=== PATIENT | female | born 2005 | race Caucasian/White ===

== ENCOUNTER 2024-10-25 14:44 | Outpatient (AMB) | payer BC, SELFPAY ==
--- NOTE | 2024-10-25 15:09 | A.OFFPC_ITS ---
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 Allergies No Known Allergies Allergy (Verified 10/25/24 15:13) Tobacco use date assessed: 10/25/24 Dental Screening Dental Screen Date: 10/25/24 Did you have a dental visit in the last 12 months?: No Did you have a dental problem in the last 6 months where you did not have access to dental care?: No Was dental information given to patient?: No HPI HPI Comments History of Present Illness Details 19-year-old female with no significant p ast medical history presents for a physical exam. She is establishing care. 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 She has no other concerns today. Patient reports last tetanus vaccine was in 2023. ROS: Constitutional: No unexplained weight loss, fever, chills, fatigue or night sweats. Eyes: No vision changes, blurry vision, double vision, eye pain, eye redness, eye discharge. ENT: No hearing loss, sneezing, congestion, runny nose or sore throat. Respiratory: No shortness of breath, cough or sputum production. Cardiovascular: No chest pain, chest pressure or chest discomfort. No palpitations or pedal edema. Gastrointestinal: No anorexia, nausea, vomiting or diarrhea. No abdominal pain or blood in stool. Genitourinary: No dysuria, hematuria, urinary frequency. Neurologic: No headache, dizziness, syncope, unilateral weakness, ataxia, numbness or tingling in the extremities. Musculoskeletal: No muscle pain, back pain, joint pain or swelling. Hematologic/Lymphatics: No bleeding or bruising. No painful lymph nodes. Skin: No rash or itching. Endocrine: No cold or heat intolerance. No polyuria or polydipsia. Psychiatric: No depression or anxiety. No SI/HI. Physical exam: Constitutional: Alert, in no distress. Head: Normocephalic. Eyes: Pupils are equal, round and reactive to light. Extraocular muscles intact. Ear, Nose and Throat: Canals clear. TMs normal. Normal nasal mucosa. No nasal discharge. No oral lesions. Neck: Supple, Full range of motion. No lymphadenopathy. No palpable thyroid m asses. Respiratory: Clear to auscultation. Cardiovascular: S1 S2 regular. No murmurs. Gastrointestinal: Abdomen soft, non-tender, non-distended. Normal bowel sounds. No palpable masses. Neurologic: No focal neurological deficits. Symmetric patellar reflexes. Moves all extremities spontaneously. Sensation intact bilaterally. Skin: No rashes or lesions. Musculoskeletal: No gross deformities. Normal range of motion. Extremities: Warm and well perfused. No clubbing, cyanosis or edema. 3+ peripheral pulses bilaterally. Psychiatric: Normal mood and affect [facility] Medical History (Updated 10/25/24 @ 15:38 by CHEY Black) HSV-1 (herpes simplex virus 1) infection Screening for tuberculosis Routine physical examination Screening for cardiovascular condition Family History (Updated 10/25/24 @ 15:18 by Carrie Elmore MA) Paternal Aunt Substance abuse Social History Housing: Apartment Patient Tobacco Use Status: Never used Tobacco e-Cigarette/Vaping Use: Currently Using Second Hand Smoke Exposure: No service: No Current occupational status: employed and student Current occupation: [employer] Current occupational exposures/hazards: No Cognitive needs: No Hearing needs: No Vision needs: No Questionnaire PHQ-9 Over the last 2 weeks, how often have you been bothered by any of the following problems? 1. Little interest or pleasure in doing things: not at all 2. Feeling down, depressed, or hopeless: not at all 3. Trouble falling or staying asleep, or sleeping too much: not at all 4. Feeling tired or having little energy: not at all 5. Poor appetite or overeating: not at all 6. Feeling bad about yourself - or that you are a failure or have let yourself or your family down: not at all 7. Trouble concentrating on things, such as reading the newspaper or watching television: not at all 8. Moving or speaking so slowly that other people could have noticed. Or the opposite - being so fidgety or restless that you have been moving around a lot more than usual: not at all 9. Thoughts that you would be better off or of hurting yourself in some way: not at all Total score: 0 Depression Screening Interpretation: Negative Depression Screening Done: Yes 30633 - PHQ-9 Billing: Yes Source: Developed by Drs. Arturo Kelly, Charu Silverio, Jordon Ray and colleagues, with an educational alban from [employer]. Thrive Questionnaire Date Thrive assessed: 10/25/24 I am a: Patient What is your living situation today?: I have a steady place to live Within the past 12 months, did the food you bought not last and you didn't have the money to get more?: Never true Within the past 12 months, did you worry whether your food would run out before you got money to buy more?: Never true Do you have trouble paying for medicines?: No Do you have trouble getting transportation to medical appointments?: No Do you have trouble paying your heating and electricity bill?: No Do you have trouble taking care of your child, family member or friend?: No Do you have trouble with day-to-day activities such as bathing, preparing meals, shopping, managing finances, etc.?: No Are you currently unemployed and looking for a job?: No Are you interested in more education?: No Please select the resources that you would like help with: None Currently or been in a relationship where the following occur: No concerns reported THRIVE Score: 0 AUDIT C Alcohol Use Questionnaire (AUDIT-C) 1. How often do you have a drink containing alcohol?: 2-4 times a month 2. How many drinks containing alcohol do you have on a typical day when you are drinking?: 3 or 4 3. How often do you have six or more drinks on one occasion?: Less than monthly Total Score: 4 KATHARINA-7 AMB Questionnaire KATHARINA-7 Date KATHARINA - 7 assessed: 10/25/24 Feeling nervous, anxious, or on edge: 0 = Not at all Not being able to stop or control worryin = Not at all Worrying too much about different things: 1 = Several days Trouble relaxin = Not at all Being so restless that it is hard to sit still: 0 = Not at all Becoming easily annoyed or irritable: 1 = Several days Feeling afraid as if something awful might happen: 0 = Not at all Total KATHARINA-7 score (0-4 normal; 5-9 mild; 10-14 moderate; 15-21 severe): 2 Source: Developed by Drs. Arturo Kelly, Charu Silverio, Jordon Ray and colleagues, with an educational alban from [employer]. KATHARINA-7 Assessment Billing KATHARINA-7 Assessment Tool: KATHARINA-7 Assessment 39776 Physical exam (Primary Care) Vital Signs: Last Vital Signs Temp 98.9 F 10/25/24 15:18 Pulse 94 10/25/24 15:18 BP 102/68 10/25/24 15:18 Pulse Ox 97 10/25/24 15:18 Oxygen Delivery Method Room Air 10/25/24 15:18 BMI result Body Mass Index 24.4 Tobacco/Smoking Status: Tobacco use Status Tobacco use date assessed 10/25/24 10/25/24 15:20 Patient Tobacco Use Status Never used Tobacco 10/25/24 15:20 e-Cigarette/Vaping Use Currently Using 10/25/24 15:20 PHQ-9: PHQ-9 Score PHQ-9: Total score 0 10/25/24 15:27 Depression Screening Interpretation: Negative Thrive Assessment: Date of Thrive Assessment Date Thrive assessed 10/25/24 10/25/24 15:11 Currently or been in a relationship where the following occur: No concerns reported Coding Level of Care Code Est Pt Prev Care 18-39y(79604) Diagnoses Screening for cardiovascular condition Z13.6 Routine physical examination Z00.00 Screening for tuberculosis Z11.1 Additional Codes KATHARINA-7 Assessment Billing - KATHARINA-7 Assessment Tool: KATHARINA-7 Assessment 94783 ([id number]) PHQ-9 - 17499 - PHQ-9 Billing: Yes ([id number]) Assessment & Plan Assessment & Plan (1) Screening for cardiovascular condition: Code(s): Z13.6 - Encounter for screening for cardiovascular disorders Category: Medical (2) Routine physical examination: Code(s): Z00.00 - Encounter for general adult medical examination without abnormal findings Category: Medical (3) Screening for tuberculosis: Code(s): Z11.1 - Encounter for screening for respiratory tuberculosis Category: Medical Plan Patient is seen today for a routine physical. 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 - Blood pressure screening annually - Cholesterol screening - Osteoporosis prevention including calcium/vitamin D intake, weight bearing exercise & smoking cessation - Nutritional and exercise counseling - Counseling of injury prevention including fire prevention, smoke alarms and seat belt usage - Screening for depression - Prevention of and/or testing for infectious diseases - defers testing since she had this done with Gynecology - Education about skin cancer - Recommendations about immunizations - Recommendation of an eye exam - Screening for substance abuse - Genetic cancer risk screening Schedule physical in 1 year. Orders: Orders Comprehensive Met. Panel Today Z00.00 - Encounter for general adult medical examination without abnormal findings, Z11.1 - Encounter for screening for respiratory tuberculosis, Z13.6 - Encounter for screening for cardiovascular disorders Complete Blood Count no Diff Today Z00.00 - Encounter for general adult medical examination without abnormal findings, Z11.1 - Encounter for screening for respiratory tuberculosis, Z13.6 - Encounter for screening for cardiovascular disorders Lipid Panel Today Z00.00 - Encounter for general adult medical examination without abnormal findings, Z11.1 - Encounter for screening for respiratory tuberculosis, Z13.6 - Encounter for screening for cardiovascular disorders Quantiferon TB Gold Plus 1 Today Z00.00 - Encounter for general adult medical examination without abnormal findings, Z11.1 - Encounter for screening for respiratory tuberculosis, Z13.6 - Encounter for screening for cardiovascular disorders
[2024-10-25 15:18] VITALS: BP 102/68; PULSE 94; TEMP 37.2; O2SAT 97; BMI 24.4
== END 2024-10-25 15:34 | disposition home or self-care (01) ==
LOC: HO.HMCFM 14:45
PROVIDERS: PCP Physician Assistant Medical; Visit Provider Physician Assistant Medical
DX: Z13.6 Encounter for screening for cardiovascular disorders (principal); Z00.00 Encounter for general adult medical examination without abnormal findings; Z11.1 Encounter for screening for respiratory tuberculosis

== ENCOUNTER → 2024-10-25 14:44 | Outpatient (BNVA) | payer BC, SELFPAY | PROVIDERS: PCP Physician Assistant Medical; Visit Provider Physician Assistant Medical | DX: Z00.00 Encounter for general adult medical examination without abnormal findings (principal); Z13.31 Encounter for screening for depression; Z13.30 Encounter for screening examination for mental health and behavioral disorders, unspecified | CPT/HCPCS: 96127 ==

== ENCOUNTER 2024-10-25 15:46 | Outpatient (REF) | payer BC, SELFPAY ==
[2024-10-25 17:46] LABS: Hemoglobin 13.8 g/dl (12.0-16.0); Mean Corpuscular HGB Conc 35.4 g/dl (31.0-35.0); Mean Corpuscular Hemoglobin 33.2 pg (27.0-33.0); Mean Corpuscular Volume 93.8 fL (80.0-98.0); Mean Platelet Volume 12.3 fL (9.4-12.3); Platelet Count 156 X10*3/uL (160-400); Red Blood Count 4.16 X10*6/uL (4.20-5.50)
[2024-10-25 18:06] LABS: Alanine Aminotransferase 28 U/L (0-31); Albumin Level 4.6 g/dL (3.5-5.0); Alkaline Phosphatase 40 U/L (39-117); Anion Gap 13 (12-20); Aspartate Amino Transferase 30 U/L (5-31); Bilirubin Total 0.4 mg/dL (0.0-1.0); Blood Urea Nitrogen 15 mg/dL (9-16); Calcium 9.3 mg/dL (8.4-10.2); Carbon Dioxide 26 mmol/L (22-29); Chloride 105 mmol/L (96-108); Cholesterol 166 mg/dL (<200); Estimated Glomerular Filt Rate > 60; Glucose Random 83 mg/dL (60-115); HDL Cholesterol 74 mg/dL (>40); LDL Cholesterol Calculated 81 mg/dL (<100); Potassium 3.6 mmol/L (3.3-5.1); Sodium 140 mmol/L (135-145); Triglycerides 57 mg/dL (<150)
[2024-10-29 16:49] LABS: Quantiferon TB Gold Plus 1 NEGATIVE (NEGATIVE); TB Test (QFT) Mitogen -Nil >10.00 IU/mL; TB Test (QFT) Nil 0.04 IU/mL; TB Test (QFT) Plus TB1 -Nil 0.04 IU/mL; TB Test (QFT) Plus TB2 -Nil 0.06 IU/mL
== END 2024-10-25 15:47 | disposition home or self-care (01) ==
LOC: HO.WFDLDS 15:46
PROVIDERS: Visit Provider Physician Assistant Medical
DX: Z00.00 Encounter for general adult medical examination without abnormal findings (principal); Z11.1 Encounter for screening for respiratory tuberculosis; Z13.6 Encounter for screening for cardiovascular disorders
CPT/HCPCS: 36415; 80053; 80061; 85027; 86480

== ENCOUNTER 2024-12-20 13:54 | Outpatient (REF) | payer BC, SELFPAY ==
--- OUTSIDE RECORDS SUMMARY | 2024-12-20 14:45 | XMS_ITS | Clinical Summary ---
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 External use only 35.44 g 4 Active mupirocin (BACTROBAN) 2 % ointmentIndicat ions:Open wound of genital labia, initial encounter Apply topically 3 (three) times a day. 22 g 4 Active Active Problems No known active problems Social History Tobacco Use Types Packs/Day Years Used Date Smoking Tobacco: Never Smokeless Tobacco: Never Education Answer Date Recorded Are you interested in more education? Not on kme e 12/06/2023 Are you concerned about learning? Not on file 12/06/2023 No 12/06/2023 No 12/06/2023 Digital Access Answer Date Recorded No 12/06/2023 No 12/06/2023 Reliable internet access at home? Not on file 12/06/2023 Device with a working camera? Not on file Comments Unknown Sex and Gender Information Value Date Recorded Sex Assigned at Female 10/13/2023 2:07 PM EDT Legal Sex Female 2:44 PM EDT Gender Identity Female 10/13/2023 2:07 PM EDT Sexual Orientation Straight 10/13/2023 2: 07 PM EDT Last Filed Vital Signs Vital Sign Reading Time Taken Comments Blood Pressure 108/75 12/06/2023 10:12 AM EDT Pulse 88 12/06/2023 10:12 AM EDT Temperature 36.8 C (98.2 F) 12/06/2023 10:12 AM EDT Respiratory Rate - - Oxygen Saturation 100% 12/06/2023 10:12 AM EDT Inhaled Oxygen Concentration - - Weight 74.8 kg (165 lb) 12/06/2023 10:12 AM EDT Height 170.2 cm (5' 7 ) 12/06/2023 10:12 AM EDT Body Mass Index 25.84 12/06/2023 10:12 AM EDT Plan of Treatment Health Maintenance Due Date Last Done Comments DEPRESSION SCREENING 2015 CHLAMYDIA SCREENING 2019 ADOLESCENT UNIVERSAL LIPID SCREENING 2020 HEPATITIS C SCREENING 2021 HIV ONE-TIME SCREENING (18-65 YEARS) 2021 COVID-19 VACCINE ( season) 2024 11/01/2022, 11/26/2021, 06/13/2021, Additional history exists PAP SMEAR 2024 Adult Td,Tdap Booster 05/10/2024 05/10/2014 COMBINED DTaP,Tdap,Td (7 - Td or Tdap) 05/10/2024 05/10/2014, 04/30/2008, 06/24/2004, Additional history exists SMOKING Hx and SMOKELESS TOBACCO SCREENING 12/05/2024 12/06/2023 HIB VACCINES Completed 06/24/2004, 09/07, 2003 PNEUMOCOCCAL VACCINES (0-49 years) Aged Out 06/24/2004, 01/09/2004, 2003, Additional history exists No longer eligible based on patient's age to complete this topic MMR VACCINES Completed 04/07/2007, 03/25/2004 HPV VACCINES Completed 03/04/2016, 10/2015, 06/26/2015 HEPATITIS A VACCINES Completed 07/12/2017, 06/25/19 17 MENINGOCOCCAL VACCINES (ACWY) Completed 09/14/2019, 05/10/2014 MENINGOCOCCAL VACCINES (B) Completed 11/01/2022, Medical Devices Not on file Insurance BLUE CROSS OUT OF STATE PPO BLUE [employer]OSS OUT OF STATE PPO BLUE CROSS OUT OF STATE PPO [facility] OUT [facility] PPO [facility] PPO [facility] PPO Care Teams Aircraft Engine Mechanic Supervisor Relationship Specialty Start Date End Date Urmila Gudino MD [address] [place] [address] PCP - General Pediatrics 10/13/23 Additional Source Comments The information contained in this document represents components of the legal health record. It is not the complete legal health record.[facility]
[2024-12-20 17:38] LABS: MANUAL DIFF FLAG NO
[2024-12-20 18:06] LABS: Iron 141 mcg/dL (30-160); Percent Iron Saturation 51 % (15-50); Total Iron Binding Capacity 274 mcg/dL (228-428); Unsaturated Iron Binding 133 ug/dL
[2024-12-20 18:12] LABS: Hematocrit 40.2 % (37.0-47.0); Hemoglobin 14.1 g/dl (12.0-16.0); Imm Gran Abs Auto 0.02 X10*3/uL (0.00-0.03); Imm Gran Pct Auto 0.2 % (0.0-0.4); Lymphocytes Absolute Auto 2.7 X10*3/uL (1.2-4.9); Mean Corpuscular HGB Conc 35.1 g/dl (31.0-35.0); Mean Corpuscular Hemoglobin 32.9 pg (27.0-33.0); Mean Corpuscular Volume 93.9 fL (80.0-98.0); NRBC Abs Auto 0.000 X10*3/uL (0.0-0.012); NRBC Pct Auto 0.0 /100WBC (0.0-0.2); Platelet Count 164 X10*3/uL (160-400); Red Blood Count 4.28 X10*6/uL (4.20-5.50); White Blood Count 8.4 X10*3/uL (4.8-10.8)
[2024-12-20 18:22] LABS: Ferritin 55 ng/mL (10-122)
[2024-12-20 18:38] LABS: Folate 15.4 ng/mL (> or = 4.0); Vitamin B12 617 pg/mL (200-900)
== END 2024-12-20 13:55 | disposition home or self-care (01) ==
LOC: HO.WFDLDS 13:54
PROVIDERS: Visit Provider Physician Assistant Medical
DX: D64.9 Anemia, unspecified (principal)
CPT/HCPCS: 36415; 82607; 82728; 82746; 83540; 85025